=== PATIENT | female | born 1940 | race Caucasian/White ===

== ENCOUNTER 2018-02-28 23:21 | Inpatient (IN) ==
--- NOTE | 2018-02-28 23:34 | Emergency Department Note ---
ED Disposition Clinical Impression: Closed right hip fracture Qualifiers: Encounter type: initial encounter Qualified Code(s): S72.001A - Fracture of unspecified part of neck of right femur, initial encounter for closed fracture Disposition: Still a Patient Condition on Discharge: Fair Referrals: Edgardo Horton [Primary Care Provider] - - Critical Care Critical Care Time: No Attestation: On , the high probability of a clinically significant, sudden or life threatening deterioration of the following system(s) required my full and direct attention, intervention and personal management. The time I documented below is in addition to time spent performing reported procedures but includes the following listed in this critical care notation. Medical Decision Making - Alvarez Inquiry Pt receiving controlled substance: Yes Alvarez was queried for this patient: No Reason not queried -: Emergent pt cond-no time Risks and benefits of using a controlled substance: were not discussed with pt by me Vital Signs: 02/28/18 23:21 Temperature 97.8 F Temperature Source Tympanic Pulse Rate [Right Radial] 65 Respiratory Rate 18 Blood Pressure [Right Arm] 138/72 Blood Pressure Mean [Right Arm] 94 02 Sat by Pulse Oximetry 97 - Lab Data Lab Results 03/01/18 00:20: WBC 14.5 H, RBC 5.01, Hgb 14.2, Hct 44.9, MCV 89.6, MCH 28.4, MCHC 31.6 L, RDW 18.6 H, Plt Count 245, MPV 6.8 L, Neut % (Auto) 79.0, Lymph % ( Auto) 14.4, [place] % (Auto) 5.5, Eos % (Auto) 0.9, Baso % (Auto) 0.3, Neut # (Auto ) 11.4 H, Lymph # (Auto) 2.1, [place] # (Auto) 0.8, Eos # (Auto) 0.1, Baso # (Auto ) 0.0 03/01/18 00:20: Sodium 139, Potassium 4.9, Chloride 102, Carbon Dioxide 28, Anion Gap 13.9, BUN 57 H, Creatinine 2.97 H, Estimated Creat Clear 14, Estimated GFR 15 L*, Est GFR ( Amer) 19 L*, Glucose 102, Calcium 9.3, Total Bilirubin 0.6, AST 19, ALT 9 L, Alkaline Phosphatase 51, Total Protein 7.7 , Albumin 3.8, Globulin 3.9 H, Albumin/Globulin Ratio 1.0 L Result diagrams: 03/01/18 00:20 03/01/18 00:20 Orders (Tests/Meds): ED MEDICATIONS Discontinued Medications Generic Name Dose Route Start Last Admin Trade Name Gurdeep PRN Reason Stop Dose Admin Morphine Sulfate 4 mg 03/01/18 00:09 03/01/18 00:27 Morphine 4mg/Ml Syringe IV 03/01/18 00:10 4 mg ONCE ONE Administration Ondansetron HCl 4 mg 03/01/18 00:09 03/01/18 00:27 Zofran 4mg/2ml Vial IV 03/01/18 00:10 4 mg ONCE ONE Administration ORDERS Category Date Time Status CT cervical spine wo con Stat Cat Scan 02/28/18 23:[address] head/brain wo con Stat Cat Scan 02/28/18 23:29 Taken XR chest AP Stat Exams 02/28/18 23:28 Taken XR hip RT 2-3V w/pelvis Stat Exams 02/28/18 23:28 Taken PT/PTT Stat Lab 03/01/18 00:20 Received Thyroid Panel Stat Lab 03/01/18 00:20 Received Urinalysis and Microscopic Stat Lab 03/01/18 00:56 Ordered Valproic Acid, (Depakene) Stat Lab 03/01/18 00:20 Received - CT Data CT Scan: Head, C-Spine Time Received: 00:[address] Reviewed: Yes: I have viewed the radiologist's interpretation Findings Narrative: CT scan interpreted by ad radiologist. Faxed report received and reviewed: Head/brain: No acute intracranial abnormality. Cervical spine: Degenerative changes without acute injury. - ECG Data Tracing #1 EKG interpreted by Shaun Salazar MD: Rhythm: sinus bradycardia Rate: 56 [place]: normal Ectopy: Premature atrial contraction Conduction: normal ST Segment Changes: none T Wave Changes: none Q Waves: none No evidence of acute ischemia or injury - Physician Consults Physician Consulted: Zackery Time: 01:02 Reason -: Orthopedic Eval/Care Comment/Response: He will consult Additional Consult: Jacob Time: 01:04 Reason -: Admission Comment/Response: Agrees to admit the patient to the hospital. We discussed the patient's clinical information, including history, exam, laboratory and radiology results and ED course. Per hospital procedure, I will write temporary bridge inpatient orders on the patient. Medical Decision Narrative: Per [facility], creatinine was 2.3 on 02/17/18. Family states she has been diagnosed with chronic renal failure and is supposed to see a specialist General Adult HPI - General Chief complaint: Fall Stated complaint: fall Time Seen by Provider: 02/28/18 23:32 Mode of Arrival: EMS Limitations: Physical Limitations Description of Symptoms (Recalled from ER Triage Doc. by RN): pt fell at [facility] tonight. presents to ed with right hip pain. pt states she was leaning over the bed to pick up worker something and fell out of bed into floor. - History of Present Illness HPI narrative: The patient has dementia. She is unable to give much history. History is obtained predominantly from EMS. They report that [facility] staff told them that the patient was found in the floor by her bed about an hour ago and has complained of right hip pain. Patient also complains of headache here. - Related Data Home Medications Medication Instructions Recorded Confirmed Amlodipine Besylate [Norvasc 10mg 10 mg PO DAILY 03/01/18 03/01/18 tablet] Aspirin 81 mg PO DAILY 03/01/18 03/01/18 Carbidopa/Levodopa [Carbidopa-Levo 1 each PO TID 03/01/18 03/01/18 10-100 mg Odt] Citalopram Hydrobromide [Celexa 10 mg PO DAILY 03/01/18 03/01/18 10mg Tablet] Divalproex Sodium [Depakote 125 mg PO BID 03/01/18 03/01/18 Sprinkle 125mg capsule] Furosemide [Furosemide 40MG tAB] 40 mg PO DAILY 03/01/18 03/01/18 Levothyroxine Sodium 88 mcg PO DAILY 03/01/18 03/01/18 [Levothyroxine 88mcg (0.088mg) Tab] Megestrol Acetate [Megestrol 400 mg PO BID 03/01/18 03/01/18 Acetate 400mg/10mL Udc] Nebivolol HCl [Bystolic] 20 mg PO DAILY 03/01/18 03/01/18 Pimavanserin Tartrate [Nuplazid] 34 mg PO DAILY 03/01/18 03/01/18 Potassium Chloride [Klor-Con 10mEq 10 meq PO DAILY 03/01/18 03/01/18 tab] Ranolazine [Ranexa 500mg ER tablet] 500 mg PO DAILY 03/01/18 03/01/18 Allergies Allergy/AdvReac Type Severity Reaction Status Date / Time ciprofloxacin [From Cipro] Allergy Verified 02/28/18 23:27 levofloxacin [From Levaquin] Allergy Verified 02/28/18 23:27 Penicillins Allergy Verified 02/28/18 23:27 prednisone Allergy Verified 02/28/18 23:27 [facility] History I have reviewed the patient's past medical history: Yes Medical History: Denies:: Diabetes Mellitus Type 1, Diabetes Mellitus Type 2 - Social History Smoking Status: Former smoker Alcohol Intake: never - Psychiatric History Expresses thoughts of harming self/others: None Suicide Plan Description: No Plan ROS Obtained: Yes unobtainable due to mental condition (Dementia) Physical Exam - General General appearance: alert, in no apparent distress - Head Head exam: atraumatic, normocephalic, normal inspection - Eye Eye exam: Present: normal appearance, PERRL, EOMI - ENT ENT exam: Present: normal exam, normal oropharynx, mucous membranes moist - Neck Neck exam: Present: normal inspection, full ROM, trachea midline. Absent: meningismus, lymphadenopathy - Chest Chest inspection: Present: normal inspection, symmetric chest wall rise. Absent : tenderness - Respiratory Respiratory exam: Present: normal lung sounds bilaterally. Absent: respiratory distress - Cardiovascular Cardiovascular exam: Present: regular rate, normal rhythm. Absent: JVD - Abdominal Exam Abdominal exam: Present: soft, normal bowel sounds. Absent: distention, tenderness, guarding - Extremities Exam Extremities exam: Present: normal inspection, full ROM, normal capillary refill. Absent: calf tenderness - Expanded Lower Extremity Exam Right Comment: Right lower extremity is not shortened or malrotated. It is tender over the lateral hip and she appears to have pain with internal and external rotation. She has normal pedal pulses and sensation, warmth, capillary refill distally. All other extremities show no signs of trauma. - Back Exam Back exam: Present: normal inspection. Absent: tenderness - Neurological Exam Neurological exam: Present: alert, other (Oriented to person only) - Psychiatric Psychiatric exam: Present: normal affect, normal mood - Skin Skin exam: Present: warm, dry, intact, normal color
[2018-03-01 00:27] LABS: Basophils % 0.3 % (0.1-2.0); Eosinophils # 0.1 K/mm3 (0.0-0.4); Eosinophils % 0.9 % (0.1-12.0); Hematocrit 44.9 % (37.0-47.0); Hemoglobin 14.2 g/dL (12.2-16.2); Lymphocytes # 2.1 K/mm3 (0.7-4.5); Lymphocytes % 14.4 K/mm3 (10-50); Mean Corpuscular HGB Conc 31.6 g/dL (31.8-35.4); Mean Corpuscular Hemoglobin 28.4 pg (27.0-31.2); Mean Corpuscular Volume 89.6 fl (81-99); Mean Platelet Volume 6.8 fl (7.4-10.4); Monocytes # 0.8 K/mm3 (0.1-1.0); Monocytes % 5.5 % (1.7-9.3); Neutrophils # 11.4 K/mm3 (1.8-7.8); Platelet Count 245 K/mm3 (142-424); Red Blood Count 5.01 M/mm3 (4.20-5.40); Red Cell Distribution Width 18.6 % (11.5-17.5); White Blood Count 14.5 K/mm3 (4.8-10.8)
[2018-03-01 00:45] LABS: Albumin Level 3.8 gm/dL (3.4-5.0); Anion Gap 13.9 mEq/L (5-15); Bilirubin,Total 0.6 mg/dL (0.2-1.0); Calcium 9.3 mg/dL (8.5-10.1); Globulin 3.9 gm/dl (1.3-3.2); Potassium 4.9 mmoL/L (3.5-5.1); Total Protein,Serum 7.7 gm/dL (6.4-8.2)
[2018-03-01 01:12] LABS: INR 1.03 (0.9-1.1); Prothrombin Time 10.6 seconds (9.4-11.8)
[2018-03-01 01:20] LABS: Free Thyroxine Index 2.8 ug/dL (5.93-13.13); T4 (Thyroxine) 7.1 ug/dl (4.7-13.3); Thyroid Stimulating Hormone 1.25 uIU/ml (0.358-3.740); Valproic Acid, (Depakene) 23.5 ug/mL (50-100)
[2018-03-01 01:23] LABS: Microscopic, Urine URINE MICROSCOPIC (MICROSCOPIC)
[2018-03-01 01:24] LABS: Appearance,Urine SL CLOUDY (Clear); Bilirubin,Urine Negative (Negative); Blood, Urine Negative (Negative); Color,Urine YELLOW (Yellow); Glucose,Urine (UA) Negative (Negative); Ketones,Urine Negative (Negative); Leukocyte Esterase,Urine Negative (Negative); Protein,Urine Negative (Negative); Specific Gravity, Urine 1.015 (1.005-1.030)
[2018-03-01 01:25] LABS: Bacteria,Urine 4+ /lpf
--- NOTE | 2018-03-01 09:28 | History & Physical Report ---
*Admission Date: 03/01/18 *Chief complaint: right hip pain *History of present illness: Ms. Vasquez is a 77-year-old white female who is a resident of [facility] with a history of Parkinson's disease, Alzheimer's dementia, coronary disease, hypothyroidism, and chronic renal insufficiency. She was found on the floor beside her bed last evening after apparently trying to get out of bed. The fall was unwitnessed. She was placed back in the bed but then noted to be complaining of right hip pain and was transported to the ER for further evaluation. In the emergency room she complained of the hip pain as well as a headache. She had a workup including x-rays of the hip, C- spine and CT of the head. Hip x-ray confirmed a nondisplaced impacted right hip fracture. C-spine showed degenerative changes but no acute fractures. CT of the head showed chronic atrophy but otherwise nothing acute. She has been admitted for orthopedic consultation and repair of her hip fracture. Because of her dementia she is unable to give any history. Her son is at the bedside and provides all of the history. He has been told that she has chronic renal failure and has been referred to a specialist although this has not been accomplished as yet. Her GFR here is 15. I have obtained the most recent labs from [facility] and on 02/17/2018 her GFR was 22 and on 2017 her GFR was 16. Her son also states she has been diabetic in the past and was on medication but her blood sugars improved and her diabetic medications were discontinued. She has history of TIAs in the remote past. She also has a history of coronary artery disease status post stent placement. She is apparently rested well through the night after receiving morphine in the emergency room. [facility] History Medical History: Reports:: Cancer, Coronary Artery Disease, Hypertension, Renal Insufficiency (chronic), Transient Ischemic Attacks (TIA) Denies:: Diabetes Mellitus Type 1, Diabetes Mellitus Type 2 Other Medical History: Reports: Arthritis, Cataracts, Hypothyroidism Laterality Cases: Bilateral: Cataract Other Surgeries: Yes: Cardiac Catheterization (with stent), Colonoscopy, Hysterectomy-Total (for cancer), Other Fractures: Yes (RT FOOT/ANKLE (PINS & SCREWS)) - *Social History Educational Level: Completed Grade School Smoking Status: Former smoker Tobacco Type: cigarettes Alcohol Intake: never Occupational Status: retired Housing: senior living Household Members: other - Psychiatric History Expresses thoughts of harming self/others: None Suicide Plan Description: No Plan *Family Hx:: Stroke, Tuberculosis Review of Systems - Review of Systems Review of systems:: unable to obtain Meds Home Medications Medication Instructions Recorded Confirmed Type Acetaminophen 650 mg PO Q6HP PRN 03/01/18 03/01/18 History Amlodipine Besylate [Norvasc 10mg 10 mg PO DAILY 03/01/18 03/01/18 History tablet] Aspirin 81 mg PO DAILY 03/01/18 03/01/18 History Carbidopa/Levodopa [Carbidopa-Levo 1 each PO TID 03/01/18 03/01/18 History 10-100 mg Odt] Citalopram Hydrobromide [Celexa 10 mg PO DAILY 03/01/18 03/01/18 History 10mg Tablet] Divalproex Sodium [Depakote 125 mg PO BID 03/01/18 03/01/18 History Sprinkle 125mg capsule] Furosemide [Furosemide 40MG tAB] 40 mg PO DAILY 03/01/18 03/01/18 History Levothyroxine Sodium 88 mcg PO DAILY 03/01/18 03/01/18 History [Levothyroxine 88mcg (0.088mg) Tab] Loperamide HCl [Imodium 2 mg 2 mg PO Q4HP PRN 03/01/18 03/01/18 History capsule] Megestrol Acetate [Megestrol 400 mg PO BID 03/01/18 03/01/18 History Acetate 400mg/10mL Udc] Nebivolol HCl [Bystolic] 20 mg PO DAILY 03/01/18 03/01/18 History Pimavanserin Tartrate [Nuplazid] 34 mg PO DAILY 03/01/18 03/01/18 History Potassium Chloride [Klor-Con 10mEq 20 meq PO DAILY 03/01/18 03/01/18 History tab] Ranolazine [Ranexa 500mg ER tablet] 500 mg PO DAILY 03/01/18 03/01/18 History Allergies Allergy/AdvReac Type Severity Reaction Status Date / Time ciprofloxacin [From Cipro] Allergy Verified 03/01/18 01:45 levofloxacin [From Levaquin] Allergy Verified 03/01/18 01:45 Penicillins Allergy Verified 03/01/18 01:45 prednisone Allergy Verified 03/01/18 01:45 Exam Vital signs and Labs for Last 24 Hours: Temp Pulse Resp BP Pulse Ox 98.5 F 62 16 117/50 100 03/01/18 08:00 03/01/18 08:16 03/01/18 08:16 03/01/18 08:00 03/01/18 08:16 Laboratory Results - last 24 hr 03/01/18 00:20: WBC 14.5 H, RBC 5.01, Hgb 14.2, Hct 44.9, MCV 89.6, MCH 28.4, MCHC 31.6 L, RDW 18.6 H, Plt Count 245, MPV 6.8 L, Neut % (Auto) 79.0, Lymph % ( Auto) 14.4, [place] % (Auto) 5.5, Eos % (Auto) 0.9, Baso % (Auto) 0.3, Neut # (Auto ) 11.4 H, Lymph # (Auto) 2.1, [place] # (Auto) 0.8, Eos # (Auto) 0.1, Baso # (Auto ) 0.0 03/01/18 00:20: Sodium 139, Potassium 4.9, Chloride 102, Carbon Dioxide 28, Anion Gap 13.9, BUN 57 H, Creatinine 2.97 H, Estimated Creat Clear 14, Estimated GFR 15 L*, Est GFR ( Amer) 19 L*, Glucose 102, Calcium 9.3, Total Bilirubin 0.6, AST 19, ALT 9 L, Alkaline Phosphatase 51, Total Protein 7.7 , Albumin 3.8, Globulin 3.9 H, Albumin/Globulin Ratio 1.0 L 03/01/18 00:20: TSH 1.25, Free T4 Index 2.8 L, Thyroxine (T4) 7.1, T3 Uptake 39 , Total Valproic Acid 23.5 L 03/01/18 00:20: PT 10.6, INR 1.03, APTT 23.0 L 03/01/18 01:16: Urine Color Yellow, Urine Appearance Sl cloudy, Urine pH 6.0, Ur Specific [place] 1.015, Urine Protein Negative, Urine Glucose (UA) Negative, Urine Ketones Negative, Urine Blood Negative, Urine Nitrate Positive, Urine Bilirubin Negative, Urine Urobilinogen 1.0, Ur Leukocyte Esterase Negative, Urine WBC 5-10, Urine Bacteria 4+ I & O for Last 24 hours: Intake & Output 02/26/18 02/27/18 02/28/18 03/01/18 11:59 11:59 11:59 11:59 Intake Total 350 / 350 Output Total 600 / 600 Balance -250 / -250 Weight 135 lb 6 oz Narrative: She is lying flat in bed asleep with no respiratory difficulty. Color is normal. She is somnolent and does not arouse. Cranium is atraumatic and normocephalic. Nares patent. Oropharynx shows slightly dry mucous membranes. Neck is supple with no adenopathy, thyromegaly, or bruits. Lungs are clear to auscultation. Heart is regular with no murmurs. Abdomen is soft and nondistended with no unusual masses. No apparent tenderness. Extremities show no deformity of the right leg. No edema noted. Distal pulses are equal and normal. H&P: Result - Labs Labs: Short CBC 03/01/18 Range/Units 00:20 WBC 14.5 H (4.8-10.8) K/mm3 Hgb 14.2 (12.2-16.2) g/dL Hct 44.9 (37.0-47.0) % Plt Count 245 (142-424) K/mm3 BMP 03/01/18 00:20 Sodium 139 Potassium 4.9 Chloride 102 Carbon Dioxide 28 BUN 57 H Creatinine 2.97 H Glucose 102 Calcium 9.3 Liver Function 03/01/18 Range/Units 00:20 Total Bilirubin 0.6 (0.2-1.0) mg/dL AST 19 (15-37) U/L ALT 9 L (12-78) U/L Alkaline Phosphatase 51 (46-116) U/L Albumin 3.8 (3.4-5.0) gm/dL Urine 03/01/18 Range/Units 01:16 Urine Color Yellow (Yellow) Urine Appearance Sl cloudy (Clear) Urine pH 6.0 (5.0-8.5) Ur Specific [place] 1.015 (1.005-1.030) Urine Protein Negative (Negative) Urine Glucose (UA) Negative (Negative) Assessment and Plan (1) Parkinsons disease Current visit: Yes Status: Chronic Category: Medical Code(s): G20 - Parkinson's disease (2) Alzheimer's dementia Current visit: Yes Status: Chronic Category: Medical Code(s): G30.9 - Alzheimer's disease, unspecified; F02.80 - Dementia in other diseases classified elsewhere without behavioral disturbance (3) History of coronary artery disease Current visit: Yes Status: Chronic Category: Medical Code(s): Z86.79 - Personal history of other diseases of the circulatory system (4) Chronic renal failure, stage 4 (severe) Current visit: Yes Status: Chronic Category: Medical Code(s): N18.4 - Chronic kidney disease, stage 4 (severe) (5) Hypothyroidism Current visit: Yes Status: Chronic Category: Medical Code(s): E03.9 - Hypothyroidism, unspecified (6) Closed right hip fracture Current visit: Yes Status: Acute Qualifiers: Encounter type: initial encounter Qualified Code(s): S72.001A - Fracture of unspecified part of neck of right femur, initial encounter for closed fracture Category: Medical Code(s): S72.001A - Fracture of unspecified part of neck of right femur, initial encounter for closed fracture - Assessment and plan all Dx Assessment and Plan for all problems:: I have reviewed her labs, EKG, and x-rays. She is an acceptable medical risk to proceed with orthopedic surgery today. Her urine is positive for nitrates and shows only a few bacteria. Culture is pending.
--- NOTE | 2018-03-01 12:07 | Consult Report ---
*Admission Date: 03/01/18 *Chief complaint: Right hip pain *History of present illness: Ms. Vasquez is a 77-year-old white female who is a resident of [facility] with a history of Parkinson's disease, Alzheimer's dementia, coronary disease, hypothyroidism, and chronic renal insufficiency. She is admitted to hospital and medical services for management of right hip fracture. Patient has severe dementia and history is mainly obtained from her family including 2 of her sons. According to them, she was found on the floor beside her bed last evening after apparently trying to get out of bed. The fall was unwitnessed. She was placed back in the bed but then noted to be complaining of right hip pain and was transported to the ER for further evaluation. In the emergency room she complained of the hip pain as well as a headache. She had a workup including x-rays of the hip, C-spine and CT of the head. Hip x-ray confirmed a nondisplaced impacted right hip fracture. C-spine showed degenerative changes but no acute fractures. CT of the head showed chronic atrophy but otherwise nothing acute. Her son also states she has been diabetic in the past and was on medication but her blood sugars improved and her diabetic medications were discontinued. She has history of TIAs in the remote past. She also has a history of coronary artery disease status post stent placement. She walks independently without using any walking aids and fairly mobile. Review of Systems - Review of Systems Review of systems:: unable to obtain [facility] History I have reviewed the patient's past medical history: Yes Medical History: Reports:: Cancer, Coronary Artery Disease, Hypertension, Renal Insufficiency (chronic), Transient Ischemic Attacks (TIA) Denies:: Diabetes Mellitus Type 1, Diabetes Mellitus Type 2 Other Medical History: Reports: Arthritis, Cataracts, Hypothyroidism Laterality Cases: Bilateral: Cataract Other Surgeries: Yes: Cardiac Catheterization (with stent), Colonoscopy, Hysterectomy-Total (for cancer), Other Fractures: Yes (RT FOOT/ANKLE (PINS & SCREWS)) - *Social History Educational Level: Completed Grade School Smoking Status: Former smoker Tobacco Type: cigarettes Alcohol Intake: never Occupational Status: retired Housing: [facility] Household Members: other - Psychiatric History Expresses thoughts of harming self/others: None Suicide Plan Description: No Plan *Family Hx:: Stroke, Tuberculosis Meds Home Medications Medication Instructions Recorded Confirmed Type Acetaminophen 650 mg PO Q6HP PRN 03/01/18 03/01/18 History Amlodipine Besylate [Norvasc 10mg 10 mg PO DAILY 03/01/18 03/01/18 History tablet] Aspirin 81 mg PO DAILY 03/01/18 03/01/18 History Carbidopa/Levodopa [Carbidopa-Levo 1 each PO TID 03/01/18 03/01/18 History 10-100 mg Odt] Citalopram Hydrobromide [Celexa 10 mg PO DAILY 03/01/18 03/01/18 History 10mg Tablet] Divalproex Sodium [Depakote 125 mg PO BID 03/01/18 03/01/18 History Sprinkle 125mg capsule] Furosemide [Furosemide 40MG tAB] 40 mg PO DAILY 03/01/18 03/01/18 History Levothyroxine Sodium 88 mcg PO DAILY 03/01/18 03/01/18 History [Levothyroxine 88mcg (0.088mg) Tab] Loperamide HCl [Imodium 2 mg 2 mg PO Q4HP PRN 03/01/18 03/01/18 History capsule] Megestrol Acetate [Megestrol 400 mg PO BID 03/01/18 03/01/18 History Acetate 400mg/10mL Udc] Nebivolol HCl [Bystolic] 20 mg PO DAILY 03/01/18 03/01/18 History Pimavanserin Tartrate [Nuplazid] 34 mg PO DAILY 03/01/18 03/01/18 History Potassium Chloride [Klor-Con 10mEq 20 meq PO DAILY 03/01/18 03/01/18 History tab] Ranolazine [Ranexa 500mg ER tablet] 500 mg PO DAILY 03/01/18 03/01/18 History Allergies Allergy/AdvReac Type Severity Reaction Status Date / Time ciprofloxacin [From Cipro] Allergy Verified 03/01/18 01:45 levofloxacin [From Levaquin] Allergy Verified 03/01/18 01:45 Penicillins Allergy Verified 03/01/18 01:45 prednisone Allergy Verified 03/01/18 01:45 Exam Vital signs and Labs for Last 24 Hours: Temp Pulse Resp BP Pulse Ox 98.5 F 62 16 117/50 100 03/01/18 08:00 03/01/18 08:16 03/01/18 08:16 03/01/18 08:00 03/01/18 08:16 Laboratory Results - last 24 hr 03/01/18 00:20: WBC 14.5 H, RBC 5.01, Hgb 14.2, Hct 44.9, MCV 89.6, MCH 28.4, MCHC 31.6 L, RDW 18.6 H, Plt Count 245, MPV 6.8 L, Neut % (Auto) 79.0, Lymph % ( Auto) 14.4, Will % (Auto) 5.5, Eos % (Auto) 0.9, Baso % (Auto) 0.3, Neut # (Auto ) 11.4 H, Lymph # (Auto) 2.1, Will # (Auto) 0.8, Eos # (Auto) 0.1, Baso # (Auto ) 0.0 03/01/18 00:20: Sodium 139, Potassium 4.9, Chloride 102, Carbon Dioxide 28, Anion Gap 13.9, BUN 57 H, Creatinine 2.97 H, Estimated Creat Clear 14, Estimated GFR 15 L*, Est GFR ( Amer) 19 L*, Glucose 102, Calcium 9.3, Total Bilirubin 0.6, AST 19, ALT 9 L, Alkaline Phosphatase 51, Total Protein 7.7 , Albumin 3.8, Globulin 3.9 H, Albumin/Globulin Ratio 1.0 L 03/01/18 00:20: TSH 1.25, Free T4 Index 2.8 L, Thyroxine (T4) 7.1, T3 Uptake 39 , Total Valproic Acid 23.5 L 03/01/18 00:20: PT 10.6, INR 1.03, APTT 23.0 L 03/01/18 01:16: Urine Color Yellow, Urine Appearance Sl cloudy, Urine pH 6.0, Ur Specific [place] 1.015, Urine Protein Negative, Urine Glucose (UA) Negative, Urine Ketones Negative, Urine Blood Negative, Urine Nitrate Positive, Urine Bilirubin Negative, Urine Urobilinogen 1.0, Ur Leukocyte Esterase Negative, Urine WBC 5-10, Urine Bacteria 4+ I & O for Last 24 hours: Intake & Output 02/26/18 02/27/18 02/28/18 03/01/18 11:59 11:59 11:59 11:59 Intake Total 350 / 350 Output Total 600 / 600 Balance -250 / -250 Weight 135 lb 6 oz Narrative: Exam General appearance: awake, no acute distress HEENT: Nil acute. Neck: Soft and supple, nontender, good range of neck movements, trachea central Cardiovascular: regular rate & rhythm Respiratory: clear to auscultation bilaterally Neuro: patient is pleasant and answers questions appropriately but has poor historical input because of her dementia. Psych: Severe dementia On examination of her lower extremities, the limb lengths are equal. The alignment is neutral. On examination of the right hip the skin is normal. No rashes or lesions noted. She is tender over the right hip both anteriorly and posteriorly. Any attempted movements of the right hip are painful. Thigh and calf are soft and nontender. Dorsalis pedis and posterior tibial pulses are palpable 1+ bilaterally. Sensation is grossly intact. She has good range of knee , foot, ankle and toe movements. Imaging: X-rays of her pelvis and right hip multiple views were reviewed along with the radiologist's report. The x-rays a valgus impacted subcapital femoral neck fracture. The hip joint space is well preserved. No other acute changes noted. There is a degree of osteopenia. No evidence of any metastatic lesions on the x-ray. Results - Labs Result Diagrams: 03/02/18 05:45 03/02/18 05:45 Labs: Abnormal lab results 03/01/18 03/01/18 03/01/18 Range/Units 00:20 00:20 00:20 WBC 14.5 H (4.8-10.8) K/mm3 MCHC 31.6 L (31.8-35.4) g/dL RDW 18.6 H (11.5-17.5) % MPV 6.8 L (7.4-10.4) fl Neut # (Auto) 11.4 H (1.8-7.8) K/mm3 APTT (23.6-34.0) seconds BUN 57 H (7-18) mg/dL Creatinine 2.97 H (0.55-1.02) mg/dL Estimated GFR 15 L* (>60) ml/min Est GFR ( Amer) 19 L* (>60) ML/MIN ALT 9 L (12-78) U/L Globulin 3.9 H (1.3-3.2) gm/dl Albumin/Globulin Ratio 1.0 L (1.1-1.8) Free T4 Index 2.8 L (5.93-13.13) ug/dL Total Valproic Acid 23.5 L (50-100) ug/mL 03/01/18 Range/Units 00:20 WBC (4.8-10.8) K/mm3 MCHC (31.8-35.4) g/dL RDW (11.5-17.5) % MPV (7.4-10.4) fl Neut # (Auto) (1.8-7.8) K/mm3 APTT 23.0 L (23.6-34.0) seconds BUN (7-18) mg/dL Creatinine (0.55-1.02) mg/dL Estimated GFR (>60) ml/min Est GFR ( Amer) (>60) ML/MIN ALT (12-78) U/L Globulin (1.3-3.2) gm/dl Albumin/Globulin Ratio (1.1-1.8) Free T4 Index (5.93-13.13) ug/dL Total Valproic Acid (50-100) ug/mL H & H 03/01/18 Range/Units 00:20 Hgb 14.2 (12.2-16.2) g/dL Hct 44.9 (37.0-47.0) % Coagulation 03/01/18 Range/Units 00:20 INR 1.03 (0.9-1.1) All other labs normal. Assessment and Plan (1) Parkinsons disease Current visit: Yes Status: Chronic Category: Medical Code(s): G20 - Parkinson's disease (2) Alzheimer's dementia Current visit: Yes Status: Chronic Category: Medical Code(s): G30.9 - Alzheimer's disease, unspecified; F02.80 - Dementia in other diseases classified elsewhere without behavioral disturbance (3) History of coronary artery disease Current visit: Yes Status: Chronic Category: Medical Code(s): Z86.79 - Personal history of other diseases of the circulatory system (4) Chronic renal failure, stage 4 (severe) Current visit: Yes Status: Chronic Category: Medical Code(s): N18.4 - Chronic kidney disease, stage 4 (severe) (5) Hypothyroidism Current visit: Yes Status: Chronic Category: Medical Code(s): E03.9 - Hypothyroidism, unspecified (6) Closed right hip fracture Current visit: Yes Status: Acute Qualifiers: Encounter type: initial encounter Qualified Code(s): S72.001A - Fracture of unspecified part of neck of right femur, initial encounter for closed fracture Category: Medical Code(s): S72.001A - Fracture of unspecified part of neck of right femur, initial encounter for closed fracture Patient is a 77-year-old female with an impacted nondisplaced transcervical fracture neck of right femur. She has severe dementia and difficult to communicate with. Therefore, I reviewed the clinical and x-ray findings with her family including 2 of her sons who were with her in the room. I have discussed the diagnosis and management options in detail including both nonsurgical and surgical. We discussed the surgical options in the form of either cannulated hip screw fixation or hemiarthroplasty. We discussed the pros and cons of both the procedures. Given that the fracture is stable with valgus impaction, I have recommended a cannulated hip screw fixation. We discussed the possibility of nonunion, avascular necrosis, loss of fixation and the likely need for further surgery in future if we elected this option. I explained the procedure, risks, benefits, alternatives and the expected postoperative course. I also explained to her family with drawings of the fracture and the proposed surgical procedure. I have given them a copy of the x-ray and also showed postoperative x-rays of similar fractures treated surgically. The complications discussed include but are not limited to- infection, injury to nerves and blood vessels, DVT and PE, femur fracture, limb length inequality, implant failure, nonunion, malunion, avascular necrosis, loss of fixation, heterotopic ossification, incomplete relief of pain, incomplete return of function or motion, likely need for further surgery in future including conversion to a magan-or total hip arthroplasty, anesthetic/medical complications including heart attack, stroke, transfusion reactions and even . We discussed how any of these events can be devastating. I've explained that the patient is at a significant surgical risk due to her age, medical comorbidities, and fragility of the bone. Patient's family seem to understand and accept these risks. We have discussed nonsurgical alternatives as well. The nonoperative management would essentially consist of prolonged bed rest and traction (skeletal/skin) in bed and pain medication and has exceptionally poor outcome. This could result in fracture displacement, nonunion and/or malunion of the fracture and almost certainly, the patient has a very high risk of decubitus ulcers, UTI, respiratory tract infections, DVT/PE and other complications from being bedridden. I have explained to them that the standard of care for this type of fracture is surgical throughout the country unless the patient is very ill to undergo surgery. We also discussed the postoperative course including the rehab and physical therapy required. [facility] lives in a [facility] and is likely to go back there for rehab after surgery. All the questions were answered and family verbalized a good understanding. She was cleared for surgery with appropriate risk stratification by Dr. James this morning. We will also obtain a preoperative anesthetic evaluation. The limb was appropriately marked and initialed by me. Recommendations for preoperative preparation include- Type and screen Continue nothing by mouth Schedule for surgery with the Operating Room Continue IV fluids DVT prophylaxis as per protocol Analgesia as needed Consent patient for a cannulated screw fixation RIGHT hip/hemiarthroplasty RIGHT hip. Order 1 g of IV Ancef for preoperative prophylaxis to start half an hour before surgery. I am planning to take the patient for surgery at the earliest opportunity today. Thank you for the opportunity to take part in the care of this very pleasant patient. Medical management as per Dr. James.
--- NOTE | 2018-03-01 14:00 | Pharmacy Consult Notes ---
[facility] Pharmacy VTE Monitoring - Patient Demographics Admission date: 03/01/18 Report Date: 03/01/18 Time: 13:59 Allergies/Adverse Reactions: Patient Allergies ciprofloxacin [From Cipro] Allergy (Verified 03/01/18 01:45) levofloxacin [From Levaquin] Allergy (Verified 03/01/18 01:45) Penicillins Allergy (Verified 03/01/18 01:45) prednisone Allergy (Verified 03/01/18 01:45) Height: 1.68 m Weight: 61.405 kg Patient Problems: Current Active Problems Closed right hip fracture (Acute) Parkinsons disease (Chronic) Alzheimer's dementia (Chronic) History of coronary artery disease (Chronic) Chronic renal failure, stage 4 (severe) (Chronic) Hypothyroidism (Chronic) - VTE Risk Labs: VTE Related Lab Results Hgb 14.2 g/dL (12.2-16.2) 03/01/18 00:20 Hct 44.9 % (37.0-47.0) 03/01/18 00:20 Plt Count 245 K/mm3 (142-424) 03/01/18 00:20 PT 10.6 seconds (9.4-11.8) 03/01/18 00:20 INR 1.03 (0.9-1.1) 03/01/18 00:20 APTT 23.0 seconds (23.6-34.0) L 03/01/18 00:20 BUN 57 mg/dL (7-18) H 03/01/18 00:20 Creatinine 2.97 mg/dL (0.55-1.02) H 03/01/18 00:20 Estimated Creat Clear 14 mL/min (0-300) 03/01/18 00:20 - Prophylaxis Types of VTE Prophylaxis: TEDS Thigh High (VIJAY HOSE ORDERED), TEDS Knee High Location of Applied Device: Left Leg
--- NOTE | 2018-03-01 14:48 | Progress Note ---
[facility] Anesthesia Checklist - Patient Identification Patient Identification: Arm Band - Structural Data Admitted From: Inpatient Planned Operative Procedure/s: right hip screw fixation Consent for Planned Operative Procedure(s) Verified: Yes Verified Documents: Surgical Consent, History and Physical - NPO Status Verified Time NPO: 00:00 - Additional verifications Anesthesia Reactions: No - Airway Assessment C-Spine Mobility Assessed: Yes (mp2) TMJ Mobility Assessed: Yes Dentition: Poor Dentition - Neurological Assessment Level of Consciousness: Drowsy - Anesthesia Plan Anesthesia Risk discussed: Yes Anesthesia Plan: Verified ASA Class: III Anesthesia Type: General [facility] Anesthesia HX I have reviewed the patient's past medical history: Yes Medical History: Reports:: Cancer, Coronary Artery Disease, Hypertension, Renal Insufficiency (chronic), Transient Ischemic Attacks (TIA) Denies:: Diabetes Mellitus Type 1, Diabetes Mellitus Type 2 Other Medical History: Reports: Arthritis, Cataracts, Hypothyroidism Laterality Cases: Bilateral: Cataract Other Surgeries: Yes: Cardiac Catheterization (with stent), Colonoscopy, Hysterectomy-Total (for cancer), Other Fractures: Yes (RT FOOT/ANKLE (PINS & SCREWS)) *Family Hx:: Stroke, Tuberculosis
--- NOTE | 2018-03-01 14:49 | Progress Note ---
[facility] Anesthesia Record Part I Intake, IV Amount: 700 Estimated blood loss (mL): 50 Urine output (mL): 550 Blood Pressure: 131/65 SaO2: 99 Pulse Rate: 60 Respiratory Rate: 16 Temperature: 99.2 F Patient is:: Drowsy, Stable Stable to PACU at:: 14:40
--- NOTE | 2018-03-01 14:49 | Progress Note ---
[facility] Anesthesia Record Part II Discharge Time: 15:10 Destination: 2nd floor PACU nurse assessment reviewed?: Yes Patient Condition:: Good Anesthesia Complications:: None
--- NOTE | 2018-03-01 14:59 | Operative Note ---
Date of procedure: 03/02/18 Pre-op Diagnosis:: Closed, valgus impacted subcapital femoral neck fracture, right Post-op Diagnosis:: Closed, valgus impacted subcapital femoral neck fracture, right hip Procedure performed:: Cannulated screw fixation, right hip Surgeon:: Ming Vizcarra MD Cloth Inspector(s):: Araceli Bonilla CIGAR INSPECTOR:: Genaroshahla Castillo Anesthesia: LMA Estimated blood loss (mL): 50 Clinical Note:: Patient is a 77-year-old female who sustained a closed valgus impacted fracture neck of right femur following an unwitnessed fall at the detention. Internal fixation with cannulated hip screws was indicated to relieve pain and restore function. Please see orthopedic consult note for full details. Operative findings:: Closed nondisplaced valgus impacted femoral neck fracture right hip as noted on the preoperative hip x-rays. The proximal femur bone quality is good. Operative note:: On the day of the procedure the patient and family was met on the floor, and a physical examination was performed. The operative side and site were marked and initialed by me. I reviewed the clinical and x-ray findings with the patient's family has patient herself has severe dementia. I have discussed the diagnosis and management options in detail including both nonsurgical and surgical. We discussed the surgical options in the form of either cannulated hip screw fixation or hemiarthroplasty/total hip arthroplasty. We discussed the pros and cons of these procedures. Given that the fracture appears to be stable with valgus impaction, I have recommended a cannulated hip screw fixation. We discussed the possibility of nonunion, avascular necrosis, loss of fixation and the likely need for further surgery in future if we elected this option. I explained the procedure, risks and benefits, alternatives and the expected postoperative course. I explained with drawings and x-ray pictures of the fracture and the proposed surgical procedure. The complications discussed include but are not limited to- infection, injury to nerves and blood vessels, DVT and PE, femur fracture, limb length inequality, implant failure, nonunion, malunion, avascular necrosis, loss of fixation, heterotopic ossification, incomplete relief of pain, incomplete return of function or motion, likely need for further surgery in future including conversion to a magan-or total hip arthroplasty, anesthetic/medical complications including heart attack, stroke, transfusion reactions and even . We discussed how any of these events can be devastating. We have discussed nonsurgical alternatives as well. We also discussed the postoperative course including the rehab and physical therapy required. All the questions were answered and they verbalized a good understanding. The patient/family understood the risks, agreed to proceed with surgery, signed the consent form and no guarantees or assurances were given or implied.. Following appropriate preoperative workup and medical clearance, patient was brought to the operating room and a general anesthesia was administered. Patient was then positioned supine on the fracture table and all the bony prominences were appropriately padded. The right foot was secured in the footplate and the footplate was attached to the fracture table. The left leg was placed out of the way in a leg biggs. Under fluoroscopic guidance the fracture was visualized and noted to be still holding good in valgus impaction with no change in position compared to the preoperative x-rays. The right hip and thigh were then prepped and draped in the usual sterile fashion. Administration of prophylactic antibiotics was confirmed with the anesthetic team (1 g of IV Ancef was administered). A preprocedure timeout was performed as per the hospital protocol. After marking the level of the greater trochanter on the skin and the proposed screw trajectory under fluoroscopy, a skin incision was made for the lateral approach to the proximal femur. The dissection was then carried through subcutaneous tissue. The fascia madiha and vastus lateralis were split in line with the skin incision. This provided access to the lateral aspect of the proximal femur. Under fluoroscopic guidance a guidewire was placed starting just above the level of the lesser trochanter and directed into the femoral head. After confirming satisfactory position of this guidewire under fluoroscopic imaging, two more parallel guidewires were placed proximally in an inverted triangular fashion using the multi-guidewire placing tool. After confirming satisfactory placement of all 3 guidewires in both AP and lateral planes, the lengths were measured and appropriate screws were selected. The outer cortex was drilled over the guidewires. Then three 6.5 mm (16 mm thread) cannulated screws were placed over the guidewires and advanced into the femoral head to the appropriate level. The guidewires were then removed and fluoroscopic images were obtained showing satisfactory and stable fixation of the fracture. Fluoroscopic images were stored digitally. The wound was washed out with normal saline and hemostasis was obtained with the diathermy cautery. The wound was then closed in layers with the 2-0 Vicryl, 2-0 Vicryl and subcuticular 4-0 Monocryl sutures, Dermabond and Steri-Strips to the skin. 30 mL of 0.5 percent Marcaine was injected into the skin and subcutaneous tissue around the incision for postoperative pain relief. Sterile dressings were applied. The right foot was taken out of the foot biggs and the left leg out of the leg biggs and placed on the table extension. The limb lengths were noted to be equal and there was no rotational malalignment. Dorsalis pedis and posterior tibial pulses were 1+ on both sides. At the end of the procedure, swab, needle and instrument counts were correct according to the scrub team. Patient was then transferred onto the bed and transported to the PACU in a stable condition. Patient tolerated the procedure well and there were no immediate complications. Postoperatively patient will receive 2 further doses of prophylactic antibiotics , DVT prophylaxis as per protocol and IV and oral analgesia as needed. Medical management as per Dr. James's team. Patient can be mobilized on the first postoperative day with a walker, weight bearing on the right side as tolerated. Implants: Synthes 6.5 mm cannulated hip screws 3-90 mm, 85 mm and 85 mm. Condition: stable Disposition: floor Specimens:: None Complications:: None
[2018-03-02 06:06] LABS: Basophils % 0.3 % (0.1-2.0); Eosinophils # 0.1 K/mm3 (0.0-0.4); Eosinophils % 1.5 % (0.1-12.0); Hematocrit 37.8 % (37.0-47.0); Hemoglobin 11.5 g/dL (12.2-16.2); Lymphocytes # 1.2 K/mm3 (0.7-4.5); Lymphocytes % 12.7 K/mm3 (10-50); Mean Corpuscular HGB Conc 30.4 g/dL (31.8-35.4); Mean Corpuscular Hemoglobin 28.3 pg (27.0-31.2); Mean Platelet Volume 7.1 fl (7.4-10.4); Monocytes # 0.5 K/mm3 (0.1-1.0); Monocytes % 4.9 % (1.7-9.3); Neutrophils # 7.3 K/mm3 (1.8-7.8); Neutrophils % 80.6 % (37.0-80.0); Platelet Count 184 K/mm3 (142-424); Red Blood Count 4.07 M/mm3 (4.20-5.40); Red Cell Distribution Width 18.6 % (11.5-17.5); White Blood Count 9.1 K/mm3 (4.8-10.8)
[2018-03-02 06:14] LABS: Albumin Level 2.8 gm/dL (3.4-5.0); Albumin/Globulin Ratio 0.8 (1.1-1.8); Anion Gap 13.2 mEq/L (5-15); Calcium 8.6 mg/dL (8.5-10.1); Globulin 3.5 gm/dl (1.3-3.2); Potassium 5.2 mmoL/L (3.5-5.1); Total Protein,Serum 6.3 gm/dL (6.4-8.2)
--- NOTE | 2018-03-02 08:13 | Progress Note ---
<Christie Soares - Last Filed: 03/02/18 08:26> Internal Medicine - PN: Subj *Date: 03/02/18 *Time: 08:26 Interval history: Patient states her hip hurts. She talks well but is unable to answer specific questions. She has a Stanley catheter to bedside drainage. States she is not hungry and does not want breakfast. Exam Vital signs and Labs for Last 24 Hours: Temp Pulse Resp BP Pulse Ox 97.9 F 63 18 140/90 96 03/02/18 07:53 03/02/18 07:53 03/02/18 07:53 03/02/18 07:53 03/02/18 07:53 Laboratory Results - last 24 hr 03/01/18 01:16: Urine Color Yellow, Urine Appearance Sl cloudy, Urine pH 6.0, Ur Specific [place] 1.015, Urine Protein Negative, Urine Glucose (UA) Negative, Urine Ketones Negative, Urine Blood Negative, Urine Nitrate Positive, Urine Bilirubin Negative, Urine Urobilinogen 1.0, Ur Leukocyte Esterase Negative, Urine WBC 5-10, Urine Bacteria 4+ 03/01/18 11:57: Blood Type AB Positive, Antibody Screen Negative 03/02/18 05:45: WBC 9.1 D, RBC 4.07 L, Hgb 11.5 L, Hct 37.8, MCV 93.0, MCH 28.3 , MCHC 30.4 L, RDW 18.6 H, Plt Count 184, MPV 7.1 L, Neut % (Auto) 80.6 H, Lymph % (Auto) 12.7, [place] % (Auto) 4.9, Eos % (Auto) 1.5, Baso % (Auto) 0.3, Neut # (Auto) 7.3, Lymph # (Auto) 1.2, [place] # (Auto) 0.5, Eos # (Auto) 0.1, Baso # (Auto) 0.0 03/02/18 05:45: Sodium 142, Potassium 5.2 H, Chloride 109 H, Carbon Dioxide 25, Anion Gap 13.2, BUN 39 H D, Creatinine 2.36 H D, Estimated Creat Clear 20, Estimated GFR 20 L, Est GFR ( Amer) 24 L D, Glucose 95, Calcium 8.6, Total Bilirubin 1.0, AST 56 H D, ALT 31 D, Alkaline Phosphatase 90, Total Protein 6.3 L, Albumin 2.8 L D, Globulin 3.5 H, Albumin/Globulin Ratio 0.8 L Urine culture reveals gram-negative rods with [place] count greater than 100,000 I & O for Last 24 hours: Intake & Output 02/27/18 02/28/18 03/01/18 03/02/18 11:59 11:59 11:59 11:59 Intake Total 350 / 350 725 / 725 Output Total 600 / 600 2750 / 2750 Balance -250 / -250 -2024 / -2024 Weight 135 lb 6 oz 135 lb 6 oz Microbiology Reports for the Last 24 Hours: Microbiology 03/01/18 01:16 Urine,Catheterized Urine Culture - Preliminary Gram Negative Rods - Constitutional no acute distress - *Routine Respiratory Exam Present: CTA bilaterally (Anteriorly and posteriorly) - *Routine Cardiovascular Exam Present: RRR - *Routine Abdominal Exam Present: soft, normoactive bowel sounds. Absent: tenderness, distended Comments: Stanley cath to bedside drainage with clear yellow urine. - *Routine Extremities Exam Absent: edema (SCUDs around bilateral legs. Right hip dressing clean and dry.) - *Routine Neurological Exam Present: alert (Oriented to name only.) Assessment and Plan (1) Parkinsons disease Current visit: Yes Status: Chronic Category: Medical Code(s): G20 - Parkinson's disease (2) Alzheimer's dementia Current visit: Yes Status: Chronic Category: Medical Code(s): G30.9 - Alzheimer's disease, unspecified; F02.80 - Dementia in other diseases classified elsewhere without behavioral disturbance (3) History of coronary artery disease Current visit: Yes Status: Chronic Category: Medical Code(s): Z86.79 - Personal history of other diseases of the circulatory system (4) Chronic renal failure, stage 4 (severe) Current visit: Yes Status: Chronic Category: Medical Code(s): N18.4 - Chronic kidney disease, stage 4 (severe) (5) Hypothyroidism Current visit: Yes Status: Chronic Category: Medical Code(s): E03.9 - Hypothyroidism, unspecified (6) Closed right hip fracture Current visit: Yes Status: Acute Qualifiers: Encounter type: initial encounter Qualified Code(s): S72.001A - Fracture of unspecified part of neck of right femur, initial encounter for closed fracture Category: Medical Code(s): S72.001A - Fracture of unspecified part of neck of right femur, initial encounter for closed fracture (7) Encounter for postoperative care Current visit: Yes Status: Acute Category: Medical Code(s): Z48.89 - Encounter for other specified surgical aftercare - Assessment and plan all Dx Assessment and Plan for all problems:: We will discontinue potassium with potassium of 5.2. We will cover UTI empirically with antibiotic until culture completed. We will start physical therapy today and have Stanley catheter removed. Patient will need assistance with eating and all activities of daily living. <Itz James - Last Filed: 03/03/18 08:22> Internal Medicine - PN: Subj *Date: 03/03/18 *Time: 08:21 Exam Vital signs and Labs for Last 24 Hours: Temp Pulse Resp BP Pulse Ox 98.2 F 69 18 130/67 98 03/03/18 07:48 03/03/18 07:48 03/03/18 07:48 03/03/18 07:48 03/03/18 07:48 I & O for Last 24 hours: Intake & Output 02/28/18 03/01/18 03/02/18 03/03/18 11:59 11:59 11:59 11:59 Intake Total 350 / 350 965 / 965 480 / 480 Output Total 600 / 600 2750 / 2750 800 / 800 Balance -250 / -250 -1785 / -1785 -320 / -320 Weight 135 lb 6 oz 135 lb 6 oz 135 lb 5.998 oz Microbiology Reports for the Last 24 Hours: Microbiology 03/01/18 01:16 Urine,Catheterized Urine Culture - Preliminary Klebsiella pneumoniae Assessment and Plan (1) Parkinsons disease Current visit: Yes Status: Chronic Category: Medical Code(s): G20 - Parkinson's disease (2) Alzheimer's dementia Current visit: Yes Status: Chronic Category: Medical Code(s): G30.9 - Alzheimer's disease, unspecified; F02.80 - Dementia in other diseases classified elsewhere without behavioral disturbance (3) History of coronary artery disease Current visit: Yes Status: Chronic Category: Medical Code(s): Z86.79 - Personal history of other diseases of the circulatory system (4) Chronic renal failure, stage 4 (severe) Current visit: Yes Status: Chronic Category: Medical Code(s): N18.4 - Chronic kidney disease, stage 4 (severe) (5) Hypothyroidism Current visit: Yes Status: Chronic Category: Medical Code(s): E03.9 - Hypothyroidism, unspecified (6) Closed right hip fracture Current visit: Yes Status: Acute Qualifiers: Encounter type: initial encounter Qualified Code(s): S72.001A - Fracture of unspecified part of neck of right femur, initial encounter for closed fracture Category: Medical Code(s): S72.001A - Fracture of unspecified part of neck of right femur, initial encounter for closed fracture (7) Encounter for postoperative care Current visit: Yes Status: Acute Category: Medical Code(s): Z48.89 - Encounter for other specified surgical aftercare (8) UTI (urinary tract infection) Current visit: Yes Status: Acute Category: Medical Code(s): N39.0 - Urinary tract infection, site not specified - Assessment and plan all Dx Assessment and Plan for all problems:: Patient seen and examined. Concur with assessment and plan as outlined.
--- NOTE | 2018-03-02 13:01 | Progress Note ---
Subjective Date: 03/02/18 Time: 12:40 Principal diagnosis: Fracture neck of femur, right hip Interval history: Patient is status post cannulated hip screw fixation, right hip, post op day # 1. Patient is sitting out in the chair. She says she is doing well and reports no problems. However, she has severe dementia and difficult to medicate with. Nursing staff says patient is eating and drinking well. PN: Obj Ex Vital signs: Temp Pulse Resp BP Pulse Ox 97.9 F 70 18 136/80 94 L 03/02/18 11:38 03/02/18 11:38 03/02/18 11:38 03/02/18 11:38 03/02/18 11:38 Narrative: Laboratory Results - last 24 hr 03/01/18 01:16: Urine Color Yellow, Urine Appearance Sl cloudy, Urine pH 6.0, Ur Specific [place] 1.015, Urine Protein Negative, Urine Glucose (UA) Negative, Urine Ketones Negative, Urine Blood Negative, Urine Nitrate Positive, Urine Bilirubin Negative, Urine Urobilinogen 1.0, Ur Leukocyte Esterase Negative, Urine WBC 5-10, Urine Bacteria 4+ 03/02/18 05:45: WBC 9.1 D, RBC 4.07 L, Hgb 11.5 L, Hct 37.8, MCV 93.0, MCH 28.3 , MCHC 30.4 L, RDW 18.6 H, Plt Count 184, MPV 7.1 L, Neut % (Auto) 80.6 H, Lymph % (Auto) 12.7, [place] % (Auto) 4.9, Eos % (Auto) 1.5, Baso % (Auto) 0.3, Neut # (Auto) 7.3, Lymph # (Auto) 1.2, [place] # (Auto) 0.5, Eos # (Auto) 0.1, Baso # (Auto) 0.0 03/02/18 05:45: Sodium 142, Potassium 5.2 H, Chloride 109 H, Carbon Dioxide 25, Anion Gap 13.2, BUN 39 H D, Creatinine 2.36 H D, Estimated Creat Clear 20, Estimated GFR 20 L, Est GFR ( Amer) 24 L D, Glucose 95, Calcium 8.6, Total Bilirubin 1.0, AST 56 H D, ALT 31 D, Alkaline Phosphatase 90, Total Protein 6.3 L, Albumin 2.8 L D, Globulin 3.5 H, Albumin/Globulin Ratio 0.8 L Exam General appearance: alert, active, awake, no acute distress Cardiovascular: regular rate & rhythm, normal peripheral pulses, Respiratory: clear to auscultation, normal breath sounds ABD: normal exam; soft and non tender On examination of the lower extremities the limb lengths are equal. Thigh and calf are soft and nontender. On examination of the right hip the dressings are clean, dry and intact. The dressings were changed by me. There is no soakage of the dressings. The wound looks clean and healthy. No evidence of any infection or other complications noted. Distal pulses are 1+. Distal sensation is intact to light touch throughout. No motor deficits noted distally. - Urinary Catheter Management Stanley Cath placed during this visit: yes Urethral indwelling: Yes Reason for continuing: Surgical procedure Insertion date: 03/01/18 Insertion time: 01:17 Progress Note: A&P (1) Parkinsons disease Status: Chronic Current Visit: Yes (2) Alzheimer's dementia Status: Chronic Current Visit: Yes (3) History of coronary artery disease Status: Chronic Current Visit: Yes (4) Chronic renal failure, stage 4 (severe) Status: Chronic Current Visit: Yes (5) Hypothyroidism Status: Chronic Current Visit: Yes (6) Closed right hip fracture Status: Acute Assessment and plan: Post op patient plan I reviewed the clinical and operative findings and procedure performed with the patient and family. Patient is doing well and has no postop problems. Patient is mobilizing well weightbearing as tolerated on the right side with the help of physical therapy. Continue DVT prophylaxis. Discontinue IV fluids, and discontinue the urinary catheter. From an orthopedic standpoint, she can be discharged back to the [facility] tomorrow if medically appropriate. Recommend DVT prophylaxis for 5 weeks postop- the appropriate agents include Lovenox, Aspirin 325 mg, Xarelto (Rivaroxaban), Eliquis (apixaban) and Coumadin. Follow-up in my office in 2 weeks time with check x-ray. Please feel free to call our office at [phone] for any orthopaedic questions. Medical management as per Dr. Baltazar team. Current Visit: Yes
[2018-03-03 07:49] VITALS: BP 130/67
--- NOTE | 2018-03-03 07:55 | Progress Note ---
<Christie Soares - Last Filed: 03/03/18 07:51> Internal Medicine - PN: Subj *Date: 03/03/18 *Time: 07:51 Interval history: Patient indicates that she has no pain. Not answering questions readily this a.m. Reviewed PT notes. She is eating poorly. Stanley catheter is out and she is incontinent. Physical therapy worked with her yesterday and she requires maximum assist. Exam Vital signs and Labs for Last 24 Hours: Temp Pulse Resp BP Pulse Ox 98.2 F 69 18 130/67 98 03/03/18 07:48 03/03/18 07:48 03/03/18 07:48 03/03/18 07:48 03/03/18 07:48 I & O for Last 24 hours: Intake & Output 02/28/18 03/01/18 03/02/18 03/03/18 11:59 11:59 11:59 11:59 Intake Total 350 / 350 965 / 965 480 / 480 Output Total 600 / 600 2750 / 2750 800 / 800 Balance -250 / -250 -1785 / -1785 -320 / -320 Weight 135 lb 6 oz 135 lb 6 oz 135 lb 5.998 oz Microbiology Reports for the Last 24 Hours: Microbiology 03/01/18 01:16 Urine,Catheterized Urine Culture - Preliminary Klebsiella pneumoniae - Constitutional no acute distress - *Routine Respiratory Exam Present: CTA bilaterally (Anteriorly and posteriorly) - *Routine Cardiovascular Exam Present: RRR - *Routine Abdominal Exam Present: soft, normoactive bowel sounds. Absent: tenderness, distended - *Routine Extremities Exam Absent: edema (SCUDs remain in place), calf tenderness - *Routine Neurological Exam Present: alert (Answers very few questions this morning. More difficult to understand.) Assessment and Plan (1) Parkinsons disease Current visit: Yes Status: Chronic Category: Medical Code(s): G20 - Parkinson's disease (2) Alzheimer's dementia Current visit: Yes Status: Chronic Category: Medical Code(s): G30.9 - Alzheimer's disease, unspecified; F02.80 - Dementia in other diseases classified elsewhere without behavioral disturbance (3) History of coronary artery disease Current visit: Yes Status: Chronic Category: Medical Code(s): Z86.79 - Personal history of other diseases of the circulatory system (4) Chronic renal failure, stage 4 (severe) Current visit: Yes Status: Chronic Category: Medical Code(s): N18.4 - Chronic kidney disease, stage 4 (severe) (5) Hypothyroidism Current visit: Yes Status: Chronic Category: Medical Code(s): E03.9 - Hypothyroidism, unspecified (6) Closed right hip fracture Current visit: Yes Status: Acute Qualifiers: Encounter type: initial encounter Qualified Code(s): S72.001A - Fracture of unspecified part of neck of right femur, initial encounter for closed fracture Category: Medical Code(s): S72.001A - Fracture of unspecified part of neck of right femur, initial encounter for closed fracture (7) Encounter for postoperative care Current visit: Yes Status: Acute Category: Medical Code(s): Z48.89 - Encounter for other specified surgical aftercare - Assessment and plan all Dx Assessment and Plan for all problems:: Continue with rehab. Repeat CBC and BMP this a.m. Possibly back to [facility] for ongoing rehab soon. <Itz James - Last Filed: 03/03/18 08:47> Internal Medicine - PN: Subj *Date: 03/03/18 *Time: 08:41 Exam Vital signs and Labs for Last 24 Hours: Temp Pulse Resp BP Pulse Ox 98.2 F 69 18 130/67 98 03/03/18 07:48 03/03/18 07:48 03/03/18 07:48 03/03/18 07:48 03/03/18 07:48 I & O for Last 24 hours: Intake & Output 02/28/18 03/01/18 03/02/18 03/03/18 11:59 11:59 11:59 11:59 Intake Total 350 / 350 965 / 965 480 / 480 Output Total 600 / 600 2750 / 2750 800 / 800 Balance -250 / -250 -1785 / -1785 -320 / -320 Weight 135 lb 6 oz 135 lb 6 oz 135 lb 5.998 oz Microbiology Reports for the Last 24 Hours: Microbiology 03/01/18 01:16 Urine,Catheterized Urine Culture - Preliminary Klebsiella pneumoniae Assessment and Plan (1) Closed right hip fracture Current visit: Yes Status: Acute Qualifiers: Encounter type: initial encounter Qualified Code(s): S72.001A - Fracture of unspecified part of neck of right femur, initial encounter for closed fracture Category: Medical Code(s): S72.001A - Fracture of unspecified part of neck of right femur, initial encounter for closed fracture (2) Urinary tract infection due to Klebsiella species Current visit: Yes Status: Acute Category: Medical Code(s): N39.0 - Urinary tract infection, site not specified; B96.1 - Klebsiella pneumoniae [K. pneumoniae] as the cause of diseases classified elsewhere (3) Chronic renal failure, stage 4 (severe) Current visit: Yes Status: Chronic Category: Medical Code(s): N18.4 - Chronic kidney disease, stage 4 (severe) (4) Hyperkalemia Current visit: Yes Status: Acute Category: Medical Code(s): E87.5 - Hyperkalemia (5) Parkinsons disease Current visit: Yes Status: Chronic Category: Medical Code(s): G20 - Parkinson's disease (6) Alzheimer's dementia Current visit: Yes Status: Chronic Category: Medical Code(s): G30.9 - Alzheimer's disease, unspecified; F02.80 - Dementia in other diseases classified elsewhere without behavioral disturbance (7) History of coronary artery disease Current visit: Yes Status: Chronic Category: Medical Code(s): Z86.79 - Personal history of other diseases of the circulatory system (8) Hypothyroidism Current visit: Yes Status: Chronic Category: Medical Code(s): E03.9 - Hypothyroidism, unspecified (9) Encounter for postoperative care Current visit: Yes Status: Acute Category: Medical Code(s): Z48.89 - Encounter for other specified surgical aftercare - Assessment and plan all Dx Assessment and Plan for all problems:: Patient seen and examined. PT angela noted. Urine culture growing Klebsiella sensitive to ciphalosporins. She is stable to return to [facility] today with continued rehab. Will continue to hold her KCL and repeat BMP in a week. Will discharge on Ceftin for her UTI and repeat UA after completion of antibiotics. Follow at [facility] with Dr. Horton and as oupt with Dr. Vizcarra in 2 weeks.
--- NOTE | 2018-03-03 09:11 | Discharge Summary ---
General - General Admission date:: 03/01/18 <Itz James - 03/03/18 16:32> 03/01/18 <Christie Soares - 03/03/18 09:11> Discharge date: 03/03/18 <RodgerChristie - 03/03/18 09:11> HPI HPI: Ms. Vasquez is a 77-year-old white female who is a resident [facility] with a history of Parkinson's disease, Alzheimer 's dementia, coronary disease, hypothyroidism, and chronic renal insufficiency. She was admitted to [facility] for management of right hip fracture. Patient is noted to have severe dementia and history was mainly obtained from her family including 2 of her sons. According to them, she was found on the floor beside her bed after apparently trying to get out of bed. The fall was unwitnessed. She was placed back in the bed but then noted to be complaining of right hip pain. She was transported to the ER for further evaluation. In the emergency room she complained of the hip pain as well as a headache. She had a workup including x-rays of the hip, C-spine and CT of the head. Hip x -ray confirmed a nondisplaced impacted right hip fracture. C-spine showed degenerative changes but no acute fractures. CT of the head showed chronic atrophy but otherwise nothing acute. Her son also stated she had been diabetic in the past and was on medication but her blood sugars improved and her diabetic medications were discontinued. She is also noted to have a history of TIAs in the remote past as well as coronary artery disease status post stent placement. She walked independently without using any walking aids and was fairly mobile. <RodgerChristie - 03/03/18 09:11> Hospital Course Hospital Course: Patient was evaluated by orthopedic surgery. On 2017 she had a cannulated screw fixation of her right hip per Dr. Vizcarra. Postoperatively she did quite well. With her severe dementia communication was quite limited. She was seen by physical therapy and required maximum assist with all therapy. She did sit up in a chair. She ate poorly. She was incontinent of urine after Stanley catheter was removed on 03/02/2018. CBC remained stable. She refused to have her blood drawn on 03/03/2018 and will be repeated in 1 week. She was found to have renal failure with a GFR at 15. It did improve to 20. She also had a high potassium. Thus her potassium was discontinued. She had a urinary tract infection with culture revealing Klebsiella pneumoniae. She was started on Rocephin for this and Ceftin p.o. will be started in the residential. On 03/03/2018 patient was felt to be stable to be discharged back to [facility] for ongoing rehab. Meds as per list. To continue with physical therapy with fall prevention in place. Patient at time of discharge was in stable and satisfactory. Cognition is poor. Rehab potential is fair. <Christie Soares - 03/03/18 09:38> Objective Vital signs: Temp Pulse Resp BP Pulse Ox 98.2 F 69 18 130/67 98 03/03/18 07:48 03/03/18 07:48 03/03/18 07:48 03/03/18 07:48 03/03/18 08:00 <Itz James - 03/03/18 16:32> Temp Pulse Resp BP Pulse Ox 98.2 F 69 18 130/67 98 03/03/18 07:48 03/03/18 07:48 03/03/18 07:48 03/03/18 07:48 03/03/18 07:48 <Christie Soares - 03/03/18 09:11> Narrative: On 03/03/2018: General: Alert but having difficulty in answering questions. Heart: Regular rate and rhythm Lungs: Clear to auscultation bilaterally A&P Abdomen: Soft nontender with positive bowel sounds Extremities: SCUDs remain in place. Dressing on right hip is clean and dry and intact. Positive pedal pulses. No leg edema. <Christie Soares - 03/03/18 09:28> Results Completed studies during hospitalization [Text1]: Laboratory Tests 03/01/18 03/02/18 03/02/18 00:20 05:45 05:45 WBC 9.1 D RBC 4.07 L Hgb 11.5 L Hct 37.8 MCV 93.0 MCH 28.3 MCHC 30.4 L RDW 18.6 H Plt Count 184 MPV 7.1 L Neut % (Auto) 80.6 H Lymph % (Auto) 12.7 [place] % (Auto) 4.9 Sodium 139 142 Potassium 4.9 5.2 H Chloride 102 109 H Carbon Dioxide 28 25 Anion Gap 13.9 13.2 BUN 57 H 39 H D Creatinine 2.97 H 2.36 H D Estimated Creat Clear 14 20 Estimated GFR 15 L* 20 L Est GFR ( Amer) 19 L* 24 L D Glucose 102 95 Calcium 9.3 8.6 Total Bilirubin 0.6 1.0 AST 19 56 H D ALT 9 L 31 D Alkaline Phosphatase 51 90 Total Protein 7.7 6.3 L Albumin 3.8 2.8 L D Globulin 3.9 H 3.5 H Albumin/Globulin Ratio 1.0 L 0.8 L <Christie Soares - 03/03/18 09:28> Labs on day of discharge: Labs from last 24 hours 03/01/18 01:16 Urine Color Yellow Urine Appearance Sl cloudy Urine pH 6.0 Ur Specific [place] 1.015 Urine Protein Negative Urine Glucose (UA) Negative Urine Ketones Negative Urine Blood Negative Urine Nitrate Positive Urine Bilirubin Negative Urine Urobilinogen 1.0 Ur Leukocyte Esterase Negative Urine WBC 5-10 Urine Bacteria 4+ Preliminary micro results at discharge 03/01/18 01:16 Urine Culture - Preliminary Urine,Catheterized Klebsiella pneumoniae Gram Positive Cocci <tIz James - 03/03/18 16:32> Labs from last 24 hours 03/01/18 01:16 Urine Color Yellow Urine Appearance Sl cloudy Urine pH 6.0 Ur Specific [place] 1.015 Urine Protein Negative Urine Glucose (UA) Negative Urine Ketones Negative Urine Blood Negative Urine Nitrate Positive Urine Bilirubin Negative Urine Urobilinogen 1.0 Ur Leukocyte Esterase Negative Urine WBC 5-10 Urine Bacteria 4+ Preliminary micro results at discharge 03/01/18 01:16 Urine Culture - Preliminary Urine,Catheterized Klebsiella pneumoniae Gram Positive Cocci <Christie Soares - 03/03/18 09:28> - Impressions Chest x-ray 02/28/2018 IMPRESSION: No acute finding Right hip x-ray 02/28/2018 IMPRESSION: Nondisplaced transcervical right femoral neck fracture CT of cervical spine 02/28/2018 IMPRESSION: 1. No acute fracture. 2. Cervical spondylosis with multilevel degenerative disc disease and facet and uncovertebral arthrosis CT of head 02/28/2018 IMPRESSION: Atrophy with chronic ischemic gliotic change. No acute intracranial finding <Christie Soares - 03/03/18 09:33> DS: Diagnosis - Discharge Diagnosis (1) Closed right hip fracture Status: Acute (2) Urinary tract infection due to Klebsiella species Status: Acute (3) Chronic renal failure, stage 4 (severe) Status: Chronic (4) Hyperkalemia Status: Acute (5) Parkinsons disease Status: Chronic (6) Alzheimer's dementia Status: Chronic (7) History of coronary artery disease Status: Chronic (8) Hypothyroidism Status: Chronic (9) Encounter for postoperative care Status: Acute <Itz James - 03/03/18 16:32> (1) Closed right hip fracture Status: Acute (2) Urinary tract infection due to Klebsiella species Status: Acute (3) Chronic renal failure, stage 4 (severe) Status: Chronic (4) Hyperkalemia Status: Acute (5) Parkinsons disease Status: Chronic (6) Alzheimer's dementia Status: Chronic (7) History of coronary artery disease Status: Chronic (8) Hypothyroidism Status: Chronic (9) Encounter for postoperative care Status: Acute <Christie Soares 03/03/18 09:34> Discharge Plan - Patient Discharge Instructions ACTIVITY: Continue current activity, Ambulate as tolerated <Christie Soares 09:11> DIET: continue same diet <Christie Soares 03/03/18 09:11> Additional Instructions: 1) PT evaluation 2) Check BMP in 1 week <Itz James 03/03/18 16:32> Patient Instructions: DI for Hip Fracture <Itz James - 03/03/18 16:32> Forms: <Itz James - 03/03/18 16:32> - Follow up Plan Follow up with: Ming Vizcarra MD [Staff Physician] - <Itz James - 03/03/18 16:32> Disposition: er [facility] <Itz James 03/03/18 16:32> Home Medications: Home Medications Medication Instructions Recorded Confirmed Type Acetaminophen 650 mg PO Q6HP PRN 03/01/18 03/01/18 History Amlodipine Besylate [Norvasc 10mg 10 mg PO DAILY 03/01/18 03/01/18 History tablet] Aspirin 81 mg PO DAILY 03/01/18 03/01/18 History Carbidopa/Levodopa [Carbidopa-Levo 1 each PO TID 03/01/18 03/01/18 History 10-100 mg Odt] Citalopram Hydrobromide [Celexa 10 mg PO DAILY 03/01/18 03/01/18 History 10mg Tablet] Divalproex Sodium [Depakote 125 mg PO BID 03/01/18 03/01/18 History Sprinkle 125mg capsule] Furosemide [Furosemide 40MG tAB] 40 mg PO DAILY 03/01/18 03/01/18 History Levothyroxine Sodium 88 mcg PO DAILY 03/01/18 03/01/18 History [Levothyroxine 88mcg (0.088mg) Tab] Loperamide HCl [Imodium 2 mg 2 mg PO Q4HP PRN 03/01/18 03/01/18 History capsule] Megestrol Acetate [Megestrol 400 mg PO BID 03/01/18 03/01/18 History Acetate 400mg/10mL Udc] Nebivolol HCl [Bystolic] 20 mg PO DAILY 03/01/18 03/01/18 History Pimavanserin Tartrate [Nuplazid] 34 mg PO DAILY 03/01/18 03/01/18 History Ranolazine [Ranexa 500mg ER tablet] 500 mg PO DAILY 03/01/18 03/01/18 History <Itz James - 03/03/18 16:32> Prescriptions/Medication Reconciliation: New Hydrocod/Acet 5/325 mg [[place] 5/325mg tablet] 1 tab PO Q4HP PRN #20 tab PRN Reason: Moderate To Severe Pain cefUROXime axetil [Ceftin 250mg Tablet] 250 mg PO BID #16 tab Enoxaparin Sodium [Lovenox 30mg/0.3mL syringe] 30 mg SQ DAILY #14 syringe Continue Levothyroxine Sodium [Levothyroxine 88mcg (0.088mg) Tab] 88 mcg PO DAILY Megestrol Acetate [Megestrol Acetate 400mg/10mL Udc] 400 mg PO BID Carbidopa/Levodopa [Carbidopa-Levo 10-100 mg Odt] 1 each PO TID Divalproex Sodium [Depakote Sprinkle 125mg capsule] 125 mg PO BID Citalopram Hydrobromide [Celexa 10mg Tablet] 10 mg PO DAILY Amlodipine Besylate [Norvasc 10mg tablet] 10 mg PO DAILY Ranolazine [Ranexa 500mg ER tablet] 500 mg PO DAILY Nebivolol HCl [Bystolic] 20 mg PO DAILY Aspirin 81 mg PO DAILY Loperamide HCl [Imodium 2 mg capsule] 2 mg PO Q4HP PRN PRN Reason: Diarrhea Pimavanserin Tartrate [Nuplazid] 34 mg PO DAILY Furosemide [Furosemide 40MG tAB] 40 mg PO DAILY Acetaminophen 650 mg PO Q6HP PRN PRN Reason: pain Discontinued Potassium Chloride [Klor-Con 10mEq tab] 20 meq PO DAILY <Itz James - 03/03/18 16:32> - Additional Information Additional Information: Concur with plan for discharge back to [facility]. <Itz James - 03/03/18 16:32>
== END 2018-03-03 10:20 ==
LOC: ER 23:21 → 2ND 03-01 01:08
PROVIDERS: ADMIT Family Medicine; ATTEND Family Medicine

== ENCOUNTER → 2018-03-18 13:11 | Outpatient (CLI) | payer MEDICARE, MEDICAID, SELFPAY ==
--- NOTE | 2018-03-18 13:21 | XR_ITS ---
XR hip RT 2-3V w/pelvis Ordering Physician: Ming Vizcarra MD Patient Age: 77 years: Female HISTORY: ITS.REASON: sp cannulated screw fixation RT hip dos 03/02/18 Procedure: AP and crosstable lateral right hip. COMPARISON is made to 03/01/2018 . Findings COMPARISON is made to series intraoperative images March 01, 2018. 3 Foley pin-like cannulated screws and replacement by fixation to right femoral neck fracture, appears to be basically subcapital fracture.. There seems to be some sclerosis which may reflect early healing about this fracture. Also does appear that the the major lateral femoral component resides slightly superiorly relative to the femoral head either with initial placement or may have migrated.. In this regard I question very subtle lucency beneath the inferior most screw.. Could not exclude that there is been slight slight superior migration of the lateral femoral component. IMPRESSION . cannulated screw fixation right femoral neck fracture. The distal femoral component appears to be slight superior in position, or possibly has undergone subtle superior migration since prior studies.. Cannot exclude subtle lucency beneath the more inferior screw. Warrants close follow-up and possibly coned-down views for more optimal image quality
== END ==
PROVIDERS: PCP Family Medicine; Visit Provider Orthopaedic Surgery
DX: Z48.89 Encounter for other specified surgical aftercare (principal)
CPT/HCPCS: 73502

== ENCOUNTER → 2018-04-02 08:33 | Outpatient (CLI) | payer MEDICARE, MEDICAID, SELFPAY ==
--- NOTE | 2018-04-02 11:12 | XR_ITS ---
XR DEXA axial skeleton HISTORY: ITS.REASON: FX, POST MENOPAUSAL ORDERING PHYSICIAN: Edgardo Horton PATIENT AGE: 77 years COMPARISON: None FINDINGS: The BMD measured at the Total femoral neck is 0.596 g/cm squared with a T score of -3.3. This is considered Osteoporotic according to the World Health Organization criteria. Fracture risk is High. Treatment is advised. The L1 L4 density has a T score of -1.5. IMPRESSION: Osteoporosis with high fracture risk. Treatment recommended. Suggest follow-up exam March 2019
== END ==
PROVIDERS: PCP Family Medicine; Visit Provider Family Medicine
DX: Z78.0 Asymptomatic menopausal state (principal); Z13.820 Encounter for screening for osteoporosis
CPT/HCPCS: 77080

== ENCOUNTER → 2018-04-23 14:07 | Outpatient (CLI) | payer MEDICARE, MEDICAID, SELFPAY ==
--- NOTE | 2018-04-23 14:11 | XR_ITS ---
XR hip RT 2-3V w/pelvis HISTORY: Follow-up ORIF right renal neck fracture ITS.REASON: sp rt hip cannulated screw fixation sx 03/02/18 ORDERING PHYSICIAN: Ming Vizcarra MD PATIENT AGE: 77 years COMPARISON: 03/18/2018 FINDINGS: 3 cannulated screws remain in stabilizing the right femoral neck fracture. The screws have slightly withdrawn as noted on the previous exam probably not significant change considering slight difference in technique and rotation. There is mild impaction of the femoral neck fracture. IMPRESSION: Status post ORIF right femoral neck fracture as described above overall not significantly changed
== END ==
PROVIDERS: PCP Family Medicine; Visit Provider Orthopaedic Surgery
DX: Z48.89 Encounter for other specified surgical aftercare (principal)
CPT/HCPCS: 73502